=== PATIENT | male | born 1995 | race Caucasian/White ===

== ENCOUNTER 2018-12-22 11:17 | Emergency (ER) | payer OTHER ==
[2018-12-22] MEDS ORDERED: NS 0.9% 1000 ML** 1,000 ML IV ONE (11:20)
[2018-12-22] MEDS ORDERED: Ketorolac INJ* 30 MG/ML 1 ML VIAL IV PUSH ONE (11:20)
--- NOTE | 2018-12-22 11:37 | ED ---
Syncope/Near Syncope - HPI Summary HPI Summary: Patient is a 23 y/o male brought in by EMS who presents to the ED s/p syncope. As per EMS, he was reading information online about STDs when he became very anxious. He recently had an STD screening because he has a new partner and has not received the results yet. Patient was running to [facility] when he felt queasy and tried to go sit on a bench. He then had a syncopal episode and fell on the concrete. Patient c/o fractures of his two front teeth and swelling of his lips. His pain is rated a 6/10 in severity. He was sent here by [facility] for concern about a jaw fracture. Patient also states he was tired today and has not yet eaten. He denies any tooth pain, jaw pain, facial pain, or STD symptoms. Patient has his broken tooth piece with him. PMHx anxiety. - History Of Current Complaint Chief Complaint: EDFacialInjury Time Seen by Provider: 12/22/18 11:19 Hx Obtained From: Patient, EMS Onset/Duration: Sudden Onset, Resolved Timing: Hours - [facility] Context: Loss Of Consciousness Activity At Onset: Exertion - running Associated Head Trauma: Yes Aggravating Factor(s): Exertion, Other - anxiety, lack of food/sleep Alleviating Factor(s): Nothing - Allergies/Home Medications Allergies/Adverse Reactions: Allergies Allergy/AdvReac Type Severity Reaction Status Date / Time No Known Allergies Allergy Verified 12/22/18 11:25 Home Medications: Home Medications Guanfacine HCl [Intuniv] 4 mg PO QAM 12/22/18 [History Confirmed 12/22/18] Guanfacine HCl [Intuniv] 12 mg PO QPM 12/22/18 [History Confirmed 12/22/18] PMH/Surg Hx/FS Hx/Imm Hx Endocrine/Hematology History: Denies: Hx Diabetes Cardiovascular History: Denies: Hx Hypertension Psychiatric History: Reports: Hx Anxiety Infectious Disease History: No Infectious Disease History: Denies: Traveled Outside the [place] in Last 30 Days - Family History Known Family History: Positive: Other - R&NC - Social History Alcohol Use: Occasionally Hx Substance Use: No Substance Use Type: Reports: None Hx Tobacco Use: No Smoking Status (MU): Never Smoked Tobacco Review of Systems Positive: Other - fracture of two front teeth, NEGATIVE: tooth pain. Negative: Dental Pain Genitourinary: Other - NEGATIVE: STD symptoms Negative: Myalgia - jaw, facial Positive: Other - facial abrasions Positive: Syncope Positive: Anxious All Other Systems Reviewed And Are Negative: Yes Physical Exam - Summary Physical Exam Summary: Appearance: Well appearing, no pain distress Skin: warm, dry, reflects adequate perfusion, abrasion to philtrum, abrasion to right long finger, abrasion to right zygoma, stellate laceration to lower lip measuring 1.6 cm in total length Head/face: normal Eyes: EOMI, JERAMIE ENT: mucous membranes moist, swelling of bilateral lips, Hanks class 1 fracture of right upper later incisor, Hanks class 2 fracture of right upper central incisor, Hanks class 3 fracture of left upper lateral incisor, adjacent gingival contusions and swelling Neck: supple, non-tender Respiratory: CTA, breath sounds present Cardiovascular: RRR, pulses symmetrical Abdomen: non-tender, soft Bowel Sounds: present Musculoskeletal: normal, strength/ROM intact Neuro: normal, sensory motor intact, A&Ox3 Triage Information Reviewed: Yes Vital Signs On Initial Exam: Initial Vitals Temp Pulse Resp BP Pulse Ox 99.2 F 89 16 131/73 99 12/22/18 11:19 12/22/18 11:19 12/22/18 11:19 12/22/18 11:19 12/22/18 11:19 Vital Signs Reviewed: Yes Procedures - Laceration/Wound Repair 1 Location: mouth - lower lip Description: Stellate Anesthesia: 1.0%, Lido - 1.5 cc Length, Depth and Shape: 1.6 cm total length Laceration/Wound Explored: clean Suture Type: Prolene - 6-0 Number of Sutures: 3 Diagnostics - Vital Signs Vital Signs Temp Pulse Resp BP Pulse Ox 12/22/18 11:19 99.2 F 89 16 131/73 99 - Laboratory Result Diagrams: 12/22/18 11:42 12/22/18 11:42 Lab Statement: Any lab studies that have been ordered have been reviewed, and results considered in the medical decision making process. - CT Maxillofacial CT CT Interpretation Completed By: Radiologist Summary of CT Findings: Fracture at the anterior margin of the alveolar ridge of the maxilla corresponding with the sockets of the RIGHT and LEFT central incisors with evidence for loosening of the teeth. Overlying soft tissue swelling and subcutaneous emphysema at the maxillary oral labia and philtrum region. ED physician reviewed radiology report. - EKG 11:42 Cardiac Rate: NL - 78 bpm EKG Rhythm: Sinus Rhythm ST Segment: Normal Summary of EKG Findings: Nl axis, nl intervals Re-Evaluation - Re-Evaluation First Eval Re-Evaluation Time: 11:44 Change: Unchanged Comment: Repaired lip laceration. Second Eval Re-Evaluation Time: 13:36 Change: Unchanged Comment: Discussed CT results and plan for dental follow-up. Pt does not want to go to his [facility] appointment, and will instead go to a dentist in [facility]. Course/Dx Course Of Treatment: Nurse's notes reviewed. Patient with major dental injuries after falling from syncope. Syncopized after reading about medical conditions related to STIs. Lower lip laceration repaired on the buccal surface. Dental fractures to the upper central incisors. There is also an adjacent fracture of the and maxilla maxilla. Discussed with dental here and was going to have the patient immediately taken over there however if patient and his father wished to have him discharged and they will take him to [facility] for evaluation by dental/oral surgery. He was started on Augmentin here and treated for his pain. EKG intervals and laboratories are otherwise benign. - Diagnoses Differential Diagnosis/HQI/PQRI: Positive: Hypoglycemia, Hypovolemia, Vasovagal Episode Provider Diagnoses: Syncope, Tooth fractures, Lip laceration, Facial abrasion, Maxillary fracture Discharge - Sign-Out/Discharge Documenting (check all that apply): Patient Departure - Discharge Patient Received Moderate/Deep Sedation with Procedure: No - Discharge Plan Condition: Improved Disposition: HOME Prescriptions: Amoxicillin/Clavulanate TAB* [Augmentin TAB 875*] 875 mg PO BID #20 tab Bacitracin OINTMENT* 1 applic TOPICAL TID #1 tube traMADol TAB* [Ultram*] 50 mg PO Q8HR #12 tab MDD 3 Patient Education Materials: Facial Fracture (ED), Syncope (ED), Acute Dental Trauma (ED) Forms: *School Release Referrals: No Primary Care Phys,NOPCP [Primary Care Provider] - Additional Instructions: You have an appointment with [facility] today at 2:00 PM. [address] [place] [address] Go directly there. return if worse, new symptoms or other concerns. - Billing Disposition and Condition Condition: IMPROVED Disposition: Home - Attestation Statements Document Initiated by Scribe: Yes Documenting Scribe: Laure Chaudhari Provider For Whom Scribe is Documenting (Include Credential): Vince Roper MD Scribe Attestation: Laure Tiwari, scribed for Vince Roper MD on 12/22/18 at 2042. Scribe Documentation Reviewed: Yes Provider Attestation: The documentation as recorded by the Laure humphries accurately reflects the service I personally performed and the decisions made by me, Vince Roper MD Status of Scribe Document: Viewed
[2018-12-22 11:57] LABS: Hematocrit 49 % (36-46); Hemoglobin 16.9 g/dL (14.0-18.0); Mean Corpuscular HGB Conc 34 g/dL (31-36); Mean Corpuscular Hemoglobin 31 pg (27-31); Mean Corpuscular Volume 92 fL (80-94); Mean Platelet Volume 8.4 fL (7.4-10.4); Platelet Count 274 10^3/uL (150-450); Red Blood Count 5.37 10^6 /uL (4.18-5.48); Red Cell Distribution Width 12 % (10.5-15); White Blood Count 18.3 10^3/uL (3.5-10.8)
[2018-12-22] MEDS: Bacitracin OINTMENT* 0.5% 0.5 oz TUBE TOPICAL ONE ×2 (12:03→13:48)
[2018-12-22 12:13] LABS: Albumin 4.6 g/dL (3.2-5.2); Albumin/Globulin Ratio 1.6 (1-3); BUN/Creatinine Ratio 13.4 (8-20); Calcium 9.2 mg/dL (8.6-10.3); EGFR African American 181.2 (>60); EGFR Non-African American 149.7 (>60); Globulin 2.8 g/dL (2-4); Potassium 4.3 mmol/L (3.5-5.0); Total Bilirubin 0.5 mg/dL (0.2-1.0); Total Protein 7.4 g/dL (6.4-8.9)
[2018-12-22 12:29] LABS: TSH (Thyroid Stimulating Horm) 1.15 mcIU/mL (0.34-5.60)
[2018-12-22 13:03] LABS: ABS Basophils 0 10^3/ul (0-0.2); ABS Eosinophils 0 10^3/ul (0-0.6); ABS Lymphocytes 0.8 10^3/ul (1.0-4.8); ABS Monocytes 2.1 10^3/ul (0-0.8); ABS Neutrophils 15.4 10^3/ul (1.5-7.7); ABS Nucleated RBC 0 10^3/ul; Eosinophil % 0.1 %; Lymphocyte % 4.5 %; Nucleated Red Blood Cells % 0
[2018-12-22] MEDS ORDERED: Amoxicillin/Clavulanate TAB* 875 MG PO ONE (13:28)
[2018-12-22 13:56] VITALS: BP 139/82
== END 2018-12-22 13:55 | disposition home or self-care (01) ==
LOC: ED 11:17
DX: R55 Syncope and collapse (principal); S02.5XXA Fracture of tooth (traumatic), initial encounter for closed fracture; S02.401A Maxillary fracture, unspecified side, initial encounter for closed fracture; S01.511A Laceration without foreign body of lip, initial encounter; S60.412A Abrasion of right middle finger, initial encounter; W18.30XA Fall on same level, unspecified, initial encounter; Y93.02 Activity, running; Y92.214 College as the place of occurrence of the external cause; F41.9 Anxiety disorder, unspecified
CPT/HCPCS: 12011; 36415; 70486; 80053; 84443; 85025; 93005; 96361; 96374; 99283; A9270-GY; J1885